=== PATIENT | female | born 1960 | race Caucasian/White ===

== ENCOUNTER 2019-11-08 13:14 | Outpatient (CLI) | payer OTHER | END 2019-11-08 19:35 | disposition home or self-care (01) | LOC: SMA 13:14 | DX: Z12.31 Encounter for screening mammogram for malignant neoplasm of breast (principal) | CPT/HCPCS: 77067 ==

== ENCOUNTER 2021-02-04 13:04 | Outpatient (CLI) | payer OTHER | END 2021-02-04 19:04 | disposition home or self-care (01) | LOC: SMA 13:04 | PROVIDERS: ATTEND Family Medicine | DX: Z12.31 Encounter for screening mammogram for malignant neoplasm of breast (principal) | CPT/HCPCS: 77067 ==